=== PATIENT | female | born 1940 | race Caucasian/White ===

== ENCOUNTER 2022-07-02 21:29 | Inpatient (IN) | payer MEDICARE, BC, SELFPAY ==
[2022-07-02] VITALS (11 sets, daily range): BP systolic 127–152; BP diastolic 76–122; PULSE 37–98; RESP 18; TEMP 37.2; O2SAT 89–94
--- NOTE | 2022-07-02 23:10 | ED.SOB ---
HPI - SOB/Dyspnea General Time Seen by Provider: 23:10 Date Seen: 07/02/22 Chief Complaint: Shortness of Breath/Dyspnea Stated Complaint: hard time breathing, cough, nauseated Time Seen by Provider: 07/02/22 23:07 Source: patient and family Mode of arrival: ambulatory Limitations: no limitations History of Present Illness HPI Narrative: Patient is a very pleasant 82-year-old female with history of hyperlipidemia who presents to the emergency room with shortness of breath, hypoxia, body aches and fever. Patient notes that she has had 2-3 days of body aches accompanied by nausea dry heaves and diarrhea. She states she tried Pepto-Bismol but was binding her up and she has since quit that. She notes that she has not had a runny nose or sore throat but has had a headache and a fever although the fever has been lobe 100. She notes that she has not needed oxygen in the past. She notes that she has had 6 of small amount of chest pain with this illness as well. She does not know of any ill contacts. Related Data Home Medications Medication Instructions Recorded Confirmed aspirin 81 mg chewable tablet 81 mg PO DAILY 07/02/22 07/02/22 atorvastatin 40 mg tablet 40 mg PO DAILY 07/02/22 07/02/22 cetirizine 10 mg tablet 10 mg PO DAILY PRN 07/02/22 07/02/22 citalopram 40 mg tablet 20 mg PO DAILY 07/02/22 07/02/22 fluticasone propionate 50 1 spray intranasal DAILY PRN 07/02/22 07/02/22 mcg/actuation nasal spray,suspension furosemide 20 mg tablet 20 mg PO DAILY 07/02/22 07/02/22 hydrochlorothiazide 25 mg tablet 25 mg PO DAILY 07/02/22 07/02/22 ipratropium bromide 0.02 % 2.5 ml inhalation TID-QID PRN 07/02/22 07/02/22 solution for inhalation lisinopril 40 mg tablet 40 mg PO DAILY 07/02/22 07/02/22 metformin 500 mg tablet 500 mg PO DAILY 07/02/22 07/02/22 metoprolol tartrate 25 mg tablet 50 mg PO DAILY 07/02/22 07/02/22 omeprazole 20 mg capsule,delayed 20 mg PO DAILY 05/01/23 05/01/23 release prasugrel 10 mg tablet 10 mg PO DAILY 07/02/22 07/02/22 Allergies Allergy/AdvReac Type Severity Reaction Status Date / Time No Known Drug Allergies Allergy Verified 07/02/22 22:45 Review of Systems Status of ROS: Reports: 10 or more systems reviewed and unremarkable except as noted in History and below Const: Reports: fever, chills and fatigue Eyes: Denies: change in vision ENMT: Denies: throat pain, neck pain, throat swelling, difficulty swallowing or hoarseness Cardio: Reports: chest pain and shortness of breath with exertion; Denies: palpitations, edema, swelling of feet/ankles or lightheadedness Resp: Reports: shortness of breath and cough GI: Reports: nausea, vomiting and diarrhea; Denies: difficulty swallowing : Denies: painful urination Musculo: Denies: back pain or neck pain Neuro: Reports: headache Endo: Reports: fatigue Allergy/Immuno: Denies: throat swelling PFSH PFSH Social History Smoking Status: Former smoker Do you use any of these nicotine containing products: None How often do you have a drink containing alcohol: never AUDIT-C Alcohol total score: 0 Non-prescribed substance use: denies use Exam Narrative: Exam Narrative: Yaneth is a very pleasant woman in no acute distress. She is clearly fatigued however. Eyes are clear. Oral cavity with moist mucous membranes. Neck is supple without lymphadenopathy. Heart with in a regular the irregular rhythm but normal rate lungs are with few crackles in the bases right greater than left. Abdomen is soft nontender but patient does feel bloated. Rather diffuse discomfort that I induced with palpation. Lower extremities without edema. Const: Vital Signs, click to edit/add: Vital Signs - 24 hr 07/02/22 22:39 07/02/22 23:00 07/02/22 23:00 Temperature 98.9 F Pulse Rate Pulse Rate [Pulse Oximeter] 91 Respiratory Rate 18 Blood Pressure Blood Pressure [Ri ght Upper Arm] 152/76 H Pulse Oximetry 91 89 91 Oxygen Delivery Me thod Room Air Room Air Nasal Cannula Oxygen Flow Rate 1 07/02/22 22:51 07/02/22 22:57 07/02/22 23:23 Temperature Pulse Rate 81 79 Pulse Rate [Pulse Oximeter] Respiratory Rate Blood Pressure 144/77 H Blood Pressure [Ri ght Upper Arm] Pulse Oximetry 92 90 90 Oxygen Delivery Me thod Oxygen Flow Rate 07/02/22 23:23 07/02/22 22:58 07/02/22 23:00 Temperature Pulse Rate 98 93 Pulse Rate [Pulse Oximeter] Respiratory Rate Blood Pressure Blood Pressure [Ri ght Upper Arm] Pulse Oximetry 91 89 90 Oxygen Delivery Me thod Nasal Cannula Oxygen Flow Rate 1 07/02/22 23:02 07/02/22 23:20 07/02/22 23:22 Temperature Pulse Rate 85 82 76 Pulse Rate [Pulse Oximeter] Respiratory Rate Blood Pressure 134/122 H 127/109 H Blood Pressure [Ri ght Upper Arm] Pulse Oximetry 93 92 94 Oxygen Delivery Me thod Oxygen Flow Rate 07/02/22 23:32 07/02/22 23:40 07/03/22 00:00 Temperature Pulse Rate 37 L 88 82 Pulse Rate [Pulse Oximeter] Respiratory Rate Blood Pressure 144/107 H Blood Pressure [Ri ght Upper Arm] Pulse Oximetry 93 93 92 Oxygen Delivery Me thod Oxygen Flow Rate 07/03/22 00:03 Temperature Pulse Rate 86 Pulse Rate [Pulse Oximeter] Respiratory Rate Blood Pressure 134/104 H Blood Pressure [Ri ght Upper Arm] Pulse Oximetry 92 Oxygen Delivery Me thod Oxygen Flow Rate Documenting provider has reviewed patient's vital signs: yes Course Course Hospital Course: Patient is suspicious for COVID but will also need to check for acute coronary event, PE, viral swabs, congestive heart failure. Will place IV and give 500 mL normal saline, Zofran 4 mg and do chest x-ray CBC, comprehensive panel, troponin, CRP Codman deemed dimer, lactate and urinalysis. Reevaluation(s) Reevaluation #1: Patient noted to have hypokalemia with potassium 2.9, low magnesium with the level of 1.4. Also chest x-ray shows increased markings and D-dimer is elevated. Patient will receive 2 g IV magnesium, potassium 50 mEq p.o. and undergo CT of the chest. Vital Signs Vital signs: Initial Vital Signs Temperature 98.9 F 07/02/22 22:39 Temperature Source Oral 07/02/22 22:39 Pulse Rate 91 07/02/22 22:39 Pulse Rhythm Regular 07/02/22 22:39 Respiratory Rate 18 07/02/22 22:39 Blood Pressure 152/76 H 07/02/22 22:39 Blood Pressure Mean 101 07/02/22 22:39 Pulse Oximetry 91 07/02/22 22:39 Oxygen Delivery Method Room Air 07/02/22 22:39 Vital Signs Temperature 98.9 F 07/02/22 22:39 Pulse Rate 91 07/02/22 22:39 Respiratory Rate 18 07/02/22 22:39 Blood Pressure 152/76 H 07/02/22 22:39 Pulse Oximetry 91 07/02/22 22:39 Oxygen Delivery Method Room Air 07/02/22 22:39 Temperature 98.9 F 07/02/22 22:39 Pulse Rate 86 07/03/22 00:03 Respiratory Rate 18 07/02/22 22:39 Blood Pressure 134/104 H 07/03/22 00:03 Pulse Oximetry 92 07/03/22 00:03 Oxygen Delivery Method Nasal Cannula 07/02/22 23:23 Oxygen Flow Rate 1 07/02/22 23:23 MDM - SOB/Dyspnea MDM Narrative Medical decision making narrative: 1. COVID with hypoxia-remdesivir 200 mg IV will be given in the ED. patient will be continued on oxygen at this time. She is feeling much better. Fluids 500 mL at this time. Dexamethasone 10 mg IV. 2. Elevated troponin-0.06 with repeat pending culture 3. Hypomagnesemia-magnesium is 1.4. For 2 g IV magnesium ordered. 4. Hypokalemia-potassium is 2.9. Fifty mEq p.o. is ordered. 5. Elevated D-dimer-CT of the chest 6. Disposition- admit to the floor. Discussed code status with patient and she is full code. Discussed patient with of L hospitalist who accepts this patient to the floor. Our EMR will be going down shortly and therefore will hand write orders for the floor as both myself and the [facility] hospitalist will be unable to enter orders. CT has been returned at this time. There is a 1.7 cm nodule suspicious for a lung cancer. Will inform patient of this and need for biopsy versus future studies. Trace pro Sachi effusions. No evidence of PE. Lab Data Attestation: I reviewed the patient's lab results. Labs: Lab Results 07/02/22 07/02/22 07/02/22 Range/Units 23:23 23:30 23:56 WBC 8.94 (4.50-11.00) K/uL RBC 2.82 L (4.00-5.20) m/uL Hgb 9.1 L (12.0-16.0) gm/dL Hct 26.4 L (33.0-51.0) % MCV 94 (80-100) fL MCH 32 (26-34) pg MCHC 35 (32-36) gm/dL RDW Coeff of Radha 13.5 (11.5-15.5) % Plt Count 170 (140-440) K/uL Neut % (Auto) 81.7 H (42.0-72.0) % Lymph % (Auto) 10.3 L (20-44) % Brooks % (Auto) 7.2 (0.0-11.0) % Eos % (Auto) 0.4 (0.0-7.0) % Baso % (Auto) 0.1 (0.0-3.0) % Neut # (Auto) 7.30 H (1.7-7.0) K/uL Lymph # (Auto) 0.90 (0.90-2.90) K/uL Brooks # (Auto) 0.60 (0.00-0.90) K/UL Eos # (Auto) 0.04 (0.00-0.50) K/uL Baso # (Auto) 0.01 (0.00-0.30) K/uL D-Dimer Quant (PE/DVT) 0.64 H (0.00-0.50) ug/ml Sodium 135 (135-149) mmol/L Potassium 2.9 L* (3.6-5.1) mmol/L Chloride 97 (96-114) mmol/L Carbon Dioxide 35 H (20-32) mmol/L BUN 19 (7-30) mg/dL Creatinine 1.0 (0.5-1.5) mg/dL Estimated GFR 56 ml/min Glucose 141 H (60-115) mg/dL Lactate 1.6 (0.5-1.9) mmol/L Calcium 8.1 L (8.4-10.6) mg/dL Magnesium 1.4 L (1.5-2.6) mg/dL Total Bilirubin 1.0 (0.1-1.5) mg/dL AST 25 (12-35) U/L ALT 22 (4-35) U/L Alkaline Phosphatase 78 (40-150) U/L Troponin I 0.06 H* (0.01-0.04) ng/mL C-Reactive Protein 8.7 H (0.5-1.0) mg/dL Total Protein 6.0 (6.0-8.3) g/dL Albumin 3.2 L (3.3-5.0) g/dL SARS-CoV-2 (PCR) POSITIVE SARS-CoV-2 A (Negative) Influenza Type A (PCR) Negative PCR FLU A (Negative) Influenza Type B (PCR) Negative PCR FLU B (Negative) RSV (PCR) Negative PCR RSV (Negative) POC Troponin I 0.03 (0.01-0.04) ng/ml Imaging Data Chest x-ray: Attestation: I have reviewed the pertinent imaging results. Radiologist's impression: Cardiovascular and mediastinum:? Cardiomediastinal silhouette is mildly enlarged.. Left chest wall AICD with leads extending to the right atrium and ventricle. Calcific atherosclerosis of the aorta. Lungs and pleural spaces:? Bibasilar opacities may reflect aspiration, infection, mild edema or atelectasis. No sign of pleural effusion.? No pneumothorax.? Bones and soft tissues:? Unremarkable for age CT scan - chest: Attestation: I have reviewed the pertinent imaging results. Radiologist's impression: Cardiovascular: The pulmonary arteries are unremarkable in enhancement with no evidence of acute pulmonary embolism. There is a left cardiac pacer present with leads in the right atrium, coronary sinus, and right ventricle. [id number] biventricular cardiomegaly is noted. No sign of aneurysm in the thoracic aorta. Moderate atherosclerotic calcifications are noted in the coronary arteries. Mediastinum: Right hilar lymph nodes are present measuring up to 1.3 cm. Lung: Mild septal thickening, ground-glass opacity and peribronchial cuffing are present bilaterally which may be due to mild interstitial edema. There is a 1.7 cm nodule present in the superior segment of the right lower lobe. Pleura and pericardium: Small right and trace left pleural effusion is noted. No significant pericardial effusion is present. Chest wall and axilla: No mass or adenopathy seen. Bone: Unremarkable for age. Upper abdomen: Cysts are partially visualized in the upper pole of the right kidney measuring up to 2 cm. IMPRESSIONS: 1. Mild septal thickening, ground-glass opacity and peribronchial cuffing are present bilaterally which may be due to mild interstitial edema. 2. Moderate atherosclerotic calcifications are noted in the coronary arteries. 3. Small right and trace left pleural effusion is noted. 4. There is a 1.7 cm nodule present in the superior segment of the right lower lobe. Further evaluation with follow-up biopsy or PET scan is recommended to exclude a primary pulmonary neoplasm in accordance with the 2017 Revised Fleischner Society Recommendations. Right hilar adenopathy should be viewed with suspicion depending on the disposition of this nodule. ECG Data Attestation: I personally reviewed and interpreted this ECG as follows: Interpretation: EKG by my read shows pacer spikes at a rhythm of 89. There frequent premature complexes as well. Discharge Plan Discharge Clinical Impression: COVID, Elevated troponin, Hypoxia, Acute hypokalemia, Hypomagnesemia Patient Disposition: Admitted As Inpatient Condition: Improved
--- NOTE | 2022-07-02 23:23 | CRLHL7_ITS ---
For Patients: As a result of the Century Cures Act, medical imaging exams and procedure reports are released immediately into your electronic medical record. You may view this report before your referring provider. If you have questions, please contact your health care provider. INDICATION: Chest pain. TECHNIQUE: Chest 1 views. COMPARISON: None. FINDINGS/IMPRESSION: Cardiovascular and mediastinum: Cardiomediastinal silhouette is mildly enlarged.. Left chest wall AICD with leads extending to the right atrium and ventricle. Calcific atherosclerosis of the aorta. Lungs and pleural spaces: Bibasilar opacities may reflect aspiration, infection, mild edema or atelectasis. No sign of pleural effusion. No pneumothorax. Bones and soft tissues: Unremarkable for age. Dictated by Herberth Goldberg MD @ 07/02/2022 11:54:04 PM (Electronically Signed)
[2022-07-02 23:35] LABS: Lactate* 1.6 mmol/L (0.5-1.9)
[2022-07-02 23:37] LABS: Basophils Absolute Auto 0.01 K/uL (0.00-0.30); Basophils Percent Auto 0.1 % (0.0-3.0); Eosinophils Absolute Auto 0.04 K/uL (0.00-0.50); Eosinophils Percent Auto 0.4 % (0.0-7.0); Hematocrit 26.4 % (33.0-51.0); Hemoglobin* 9.1 gm/dL (12.0-16.0); Immature Granulocytes Abs Auto 0.03 K/uL (0.00-0.30); Immature Granulocytes Pct Auto 0.3 %; Lymphocytes Percent Auto 10.3 % (20-44); Mean Corpuscular HGB Conc 35 gm/dL (32-36); Mean Corpuscular Hemoglobin 32 pg (26-34); Mean Corpuscular Volume 94 fL (80-100); Monocytes Percent Auto 7.2 % (0.0-11.0); Neutrophils Percent Auto 81.7 % (42.0-72.0); Platelet Count* 170 K/uL (140-440); RDW Coefficient of Variation % 13.5 % (11.5-15.5); Red Blood Count 2.82 m/uL (4.00-5.20); White Blood Count* 8.94 K/uL (4.50-11.00)
[2022-07-02 23:38] LABS: Slide Review Reflex No
[2022-07-02] MEDS: 0.9 % SODIUM CHLORIDE 500 ML 500 ML IV (23:49)
[2022-07-02] MEDS: ONDANSETRON 2 MG/ML inj 4 MG IVP (23:49)
[2022-07-02 23:52] LABS: Troponin, Point-of-Care* 0.03 ng/ml (0.01-0.04)
[2022-07-02 23:54] LABS: Albumin* 3.2 g/dL (3.3-5.0); Chloride* 97 mmol/L (96-114); Sodium* 135 mmol/L (135-149)
[2022-07-02 23:57] LABS: Aspartate Amino Transferase* 25 U/L (12-35); Carbon Dioxide* 35 mmol/L (20-32); Estimated Glomerular Filt Rate 56 ml/min; Magnesium* 1.4 mg/dL (1.5-2.6)
[2022-07-02 23:58] LABS: Alanine Aminotransferase* 22 U/L (4-35); Alkaline Phosphatase* 78 U/L (40-150); Blood Urea Nitrogen* 19 mg/dL (7-30); Calcium* 8.1 mg/dL (8.4-10.6); Glucose* 141 mg/dL (60-115)
[2022-07-02 23:59] LABS: D Dimer Quantitative* 0.64 ug/ml (0.00-0.50)
[2022-07-03] VITALS (15 sets, daily range): BP systolic 99–144; BP diastolic 45–104; PULSE 60–86; RESP 18–20; TEMP 36–37.9; O2SAT 92–96; BMI 29.3
[2022-07-03] LABS: C Reactive Protein* 8.7 mg/dL (0.5-1.0)
[2022-07-03 00:01] LABS: Potassium* 2.9 mmol/L (3.6-5.1)
[2022-07-03 00:11] LABS: Troponin I* 0.06 ng/mL (0.01-0.04)
--- NOTE | 2022-07-03 00:16 | CRLHL7_ITS ---
For Patients: As a result of the Century Cures Act, medical imaging exams and procedure reports are released immediately into your electronic medical record. You may view this report before your referring provider. If you have questions, please contact your health care provider. INDICATION: Elevated D-dimer and hypoxia TECHNIQUE: CT chest with i.v. contrast using pulmonary angiographic technique. Coronal and sagittal reformats were obtained. CONTRAST: 95 mL Isovue 370 COMPARISON: None FINDINGS: Cardiovascular: The pulmonary arteries are unremarkable in enhancement with no evidence of acute pulmonary embolism. There is a left cardiac pacer present with leads in the right atrium, coronary sinus, and right ventricle. [id number]-ju-dtdrtads biventricular cardiomegaly is noted. No sign of aneurysm in the thoracic aorta. Moderate atherosclerotic calcifications are noted in the coronary arteries. Mediastinum: Right hilar lymph nodes are present measuring up to 1.3 cm. Lung: Mild septal thickening, ground-glass opacity and peribronchial cuffing are present bilaterally which may be due to mild interstitial edema. There is a 1.7 cm nodule present in the superior segment of the right lower lobe. Pleura and pericardium: Small right and trace left pleural effusion is noted. No significant pericardial effusion is present. Chest wall and axilla: No mass or adenopathy seen. Bone: Unremarkable for age. Upper abdomen: Cysts are partially visualized in the upper pole of the right kidney measuring up to 2 cm. IMPRESSIONS: 1. Mild septal thickening, ground-glass opacity and peribronchial cuffing are present bilaterally which may be due to mild interstitial edema. 2. Moderate atherosclerotic calcifications are noted in the coronary arteries. 3. Small right and trace left pleural effusion is noted. 4. There is a 1.7 cm nodule present in the superior segment of the right lower lobe. Further evaluation with follow-up biopsy or PET scan is recommended to exclude a primary pulmonary neoplasm in accordance with the 2017 Revised Fleischner Society Recommendations. Right hilar adenopathy should be viewed with suspicion depending on the disposition of this nodule. The findings were discussed with Dr. Garcia at 1:17 AM. Dictated by Sj Hdz MD @ 07/03/2022 1:14:30 AM Please note that all CT scans at this facility use dose modulation, iterative reconstruction, and/or weight-based dosing when appropriate to reduce radiation dose to as low as reasonably achievable. Dictated by: Sj Hdz MD @ 07/03/2022 01:17:56 (Electronically Signed)
[2022-07-03] MEDS: MAGNESIUM IV 2 GM/50 ML PIGGYBACK IVPB (00:29)
[2022-07-03] MEDS: POTASSIUM BICARB 25 MEQ EFFERVESCENT TAB 50 MEQ PO (00:29)
[2022-07-03 00:36] LABS: PCR FLU A Negative PCR FLU A (Negative); PCR FLU B Negative PCR FLU B (Negative); PCR RSV Negative PCR RSV (Negative); SARS PCR* POSITIVE SARS-CoV-2 (Negative)
[2022-07-03] MEDS: dexAMETHasone 4 MG/ML VIAL 10 MG IV (01:11)
[2022-07-03 01:25] LABS: Troponin, Point-of-Care* 0.04 ng/ml (0.01-0.04)
[2022-07-03] MEDS: ACETAMINOPHEN 500 MG TABLET 1000 MG PO (03:00)
--- NOTE | 2022-07-03 05:38 | PC.NURSE ---
down time occurred, patient admitted to [facility], report given to [facility] SHAUNA York
--- NOTE | 2022-07-03 06:17 | PC.NURSE ---
ADMISSION NOTE: Pt pleasant and cooperative, A&O. Pt admitted from ER with COVID, initially on 1.5L O2 PNC with oxygen saturation in the mid 90's, when pt fell asleep oxygen saturation 89%, increased oxygen to 2LPM with oxygen saturation at 94%. Temp 100.2, Tylenol administered. Tele paced. Pt reported her SOB was much improved since arriving in the ER and now only has mild SOB with exertion. Pt denied pain, N/V, and CP. Up SBA, steady on her feet. Pt went to sleep after admission, has not been up to use the BR yet, still need to obtain a urine sample.
[2022-07-03 07:19] LABS: Basophils Absolute Auto 0.01 K/uL (0.00-0.30); Basophils Percent Auto 0.2 % (0.0-3.0); Hematocrit 25.7 % (33.0-51.0); Hemoglobin* 8.7 gm/dL (12.0-16.0); Immature Granulocytes Abs Auto 0.02 K/uL (0.00-0.30); Immature Granulocytes Pct Auto 0.3 %; Lymphocytes Percent Auto 10.6 % (20-44); Mean Corpuscular HGB Conc 34 gm/dL (32-36); Mean Corpuscular Hemoglobin 32 pg (26-34); Mean Corpuscular Volume 95 fL (80-100); Monocytes Percent Auto 1.7 % (0.0-11.0); Neutrophils Percent Auto 87.2 % (42.0-72.0); Platelet Count* 171 K/uL (140-440); RDW Coefficient of Variation % 13.7 % (11.5-15.5); White Blood Count* 6.53 K/uL (4.50-11.00)
[2022-07-03 07:21] LABS: Slide Review Reflex No
[2022-07-03 07:27] LABS: Albumin* 3.2 g/dL (3.3-5.0); Chloride* 97 mmol/L (96-114); Potassium* 3.5 mmol/L (3.6-5.1); Sodium* 136 mmol/L (135-149)
[2022-07-03 07:29] LABS: Creatinine* 1.1 mg/dL (0.5-1.5); Est. Creatinine Clearance* 30.65; Estimated Glomerular Filt Rate 50 ml/min
[2022-07-03 07:30] LABS: Alanine Aminotransferase* 24 U/L (4-35); Alkaline Phosphatase* 76 U/L (40-150); Aspartate Amino Transferase* 27 U/L (12-35); Bilirubin Total* 0.5 mg/dL (0.1-1.5); Blood Urea Nitrogen* 21 mg/dL (7-30); Calcium* 7.7 mg/dL (8.4-10.6); Carbon Dioxide* 35 mmol/L (20-32); Glucose* 186 mg/dL (60-115)
--- NOTE | 2022-07-03 10:29 | PM.IMHP1 ---
Hospitalist- H&P: HPI History of Present Illness Date Seen: 07/03/22 Chief complaint: hard time breathing, cough, nauseated Narrative: Yaneth Rodriguez is a 82 year old female who presented to the emergency room on the evening of 07/02 for concerns of shortness of breath, abdominal discomfort and bloating, intermittent cough, body aches, and fever. She did not have any chest pain, but noted gas pain throughout her epigastrium, accompanied by intermittent dry heaves and diarrhea. She was unable to find any medications to help her symptoms, and presented to the emergency room secondary to this illness. ER course and findings: - + COVID - acute hypoxic respiratory failure - hypokalemia, hypocalcemia, hypomagnesemia - 1.7cm nodule noted in superior segment of RLL on chest CT - Remdesivir initiated, given one dose of Decadron as well Patient admitted by the hospitalist overnight, no acute events overnight. Yaneth's medical history was reviewed with her this morning (splits time between [place] and [place], [place] - PCP in [place] is Dr. George Javier; PCP in [place] is SIRI HurtadoP at [facility]) and updated below. She lives with her son and [id number] (Mauro and Priscillaeric Evans, would be medical decision makers if needed). Review of Systems Status of ROS: Reports: 10 or more systems reviewed and unremarkable except as noted in History and below Narrative: No chest pain or palpitations, no skin concerns PFSH [facility] Medical History (Updated 07/03/22 @ 13:41 by Leona Membreno MD) Hyperlipidemia ?E78.5 - Hyperlipidemia, unspecified (ICD-10) Non-insulin dependent diabetes mellitus CHF (congestive heart failure) ?I50.9 - Heart failure, unspecified (ICD-10) Coronary artery disease ?I25.10 - Atherosclerotic heart disease of [place] coronary artery without angina pectoris (ICD-10) Normocytic anemia ?D64.9 - Anemia, unspecified (ICD-10) Essential hypertension ?I10 - Essential (primary) hypertension (ICD-10) Presence of combination internal cardiac defibrillator (ICD) and pacemaker ?Z95.810 - Presence of automatic (implantable) cardiac defibrillator (ICD-10) Surgical History (Updated 07/03/22 @ 10:31 by Leona Membreno MD) H/O heart artery stent ?Z95.5 - Presence of coronary angioplasty implant and graft (ICD-10) S/P coil embolization of cerebral aneurysm ?Z98.890 - Other specified postprocedural states (ICD-10) Social History (Updated 07/03/22 @ 12:33 by Leona Membreno MD) Narrative: Yaneth is retired, has 5 adult children. Not currently (, then ). Splits time between [place] (lives with Mauro/Priscilla) and [place]. Quit smoking remotely, rare ETOH. Son Mauro and MAYCOL Wells would be medical decision makers if needed. Full Code Smoking Status: Former smoker Do you use any of these nicotine containing products: None Nicotine containing products detail: Quit smoking 1986 Second hand tobacco smoke exposure: No How often do you have a drink containing alcohol: never AUDIT-C Alcohol total score: 0 Non-prescribed substance use: denies use Caffeine: Yes (COFFEE) service: No Meds Home Medications and Allergies Home Medications Medication Instructions Recorded Confirmed Type aspirin 81 mg chewable tablet 81 mg PO DAILY 07/02/22 07/02/22 History atorvastatin 40 mg tablet 40 mg PO DAILY 07/02/22 07/02/22 History cetirizine 10 mg tablet 10 mg PO DAILY PRN 07/02/22 07/02/22 History citalopram 40 mg tablet 20 mg PO DAILY 07/02/22 07/02/22 History fluticasone propionate 50 1 spray intranasal DAILY PRN 07/02/22 07/02/22 History mcg/actuation nasal spray,suspension furosemide 20 mg tablet 20 mg PO DAILY 07/02/22 07/02/22 History hydrochlorothiazide 25 mg tablet 25 mg PO DAILY 07/02/22 07/02/22 History ipratropium bromide 0.02 % 2.5 ml inhalation TID-QID PRN 07/02/22 07/02/22 History solution for inhalation lisinopril 40 mg tablet 40 mg PO DAILY 07/02/22 07/02/22 History metformin 500 mg tablet 500 mg PO DAILY 07/02/22 07/02/22 History metoprolol tartrate 25 mg tablet 50 mg PO DAILY 07/02/22 07/02/22 History omeprazole 20 mg capsule,delayed 20 mg PO DAILY 07/02/22 07/02/22 History release prasugrel 10 mg tablet 10 mg PO DAILY 07/02/22 07/02/22 History Allergies Allergy/AdvReac Type Severity Reaction Status Date / Time No Known Drug Allergies Allergy Verified 07/02/22 22:45 Exam Narrative: Exam Narrative: GEN: Alert and oriented, sitting comfortably in bed and answering questions appropriately HEENT: EOMIs bilaterally, no scleral icterus CV: RRR, No concerning murmurs, rubs, or gallops R: LCTA bilaterally without concerning wheezing Ext: wwp, no concerning edema Skin: No concerning skin lesions or rashes on exposed skin Neuro: No focal deficits Psych: Appropriate Const: Vital Signs, click to edit/add: Vital Signs - 24 hr 07/02/22 22:39 07/02/22 22:51 07/02/22 22:57 Temperature 98.9 F Pulse Rate 81 79 Pulse Rate [Left P ulse Oximeter] Pulse Rate [Pulse Oximeter] 91 Respiratory Rate 18 Blood Pressure 144/77 H Blood Pressure [Le ft Arm] Blood Pressure [Ri ght Upper Arm] 152/76 H Pulse Oximetry 91 92 90 Oxygen Delivery Me thod Room Air Oxygen Flow Rate 07/02/22 22:58 07/02/22 23:00 07/02/22 23:00 Temperature Pulse Rate 98 Pulse Rate [Left P ulse Oximeter] Pulse Rate [Pulse Oximeter] Respiratory Rate Blood Pressure Blood Pressure [Le ft Arm] Blood Pressure [Ri ght Upper Arm] Pulse Oximetry 89 89 91 Oxygen Delivery Me thod Room Air Nasal Cannula Oxygen Flow Rate 1 07/02/22 23:00 07/02/22 23:02 07/02/22 23:20 Temperature Pulse Rate 93 85 82 Pulse Rate [Left P ulse Oximeter] Pulse Rate [Pulse Oximeter] Respiratory Rate Blood Pressure 134/122 H Blood Pressure [Le ft Arm] Blood Pressure [Ri ght Upper Arm] Pulse Oximetry 90 93 92 Oxygen Delivery Me thod Oxygen Flow Rate 07/02/22 23:22 07/02/22 23:23 07/02/22 23:23 Temperature Pulse Rate 76 Pulse Rate [Left P ulse Oximeter] Pulse Rate [Pulse Oximeter] Respiratory Rate Blood Pressure 127/109 H Blood Pressure [Le ft Arm] Blood Pressure [Ri ght Upper Arm] Pulse Oximetry 94 90 91 Oxygen Delivery Me thod Nasal Cannula Oxygen Flow Rate 1 07/02/22 23:32 07/02/22 23:40 07/03/22 00:00 Temperature Pulse Rate 37 L 88 82 Pulse Rate [Left P ulse Oximeter] Pulse Rate [Pulse Oximeter] Respiratory Rate Blood Pressure 144/107 H Blood Pressure [Le ft Arm] Blood Pressure [Ri ght Upper Arm] Pulse Oximetry 93 93 92 Oxygen Delivery Me thod Oxygen Flow Rate 07/03/22 00:03 07/03/22 00:33 07/03/22 01:20 Temperature Pulse Rate 86 78 72 Pulse Rate [Left P ulse Oximeter] Pulse Rate [Pulse Oximeter] Respiratory Rate Blood Pressure 134/104 H 144/90 H Blood Pressure [Le ft Arm] Blood Pressure [Ri ght Upper Arm] Pulse Oximetry 92 92 94 Oxygen Delivery Me thod Oxygen Flow Rate 07/03/22 02:00 07/03/22 02:00 07/03/22 02:00 Temperature 100.2 F H Pulse Rate 62 Pulse Rate [Left P ulse Oximeter] 64 Pulse Rate [Pulse Oximeter] Respiratory Rate 20 20 Blood Pressure Blood Pressure [Le ft Arm] 121/47 L Blood Pressure [Ri ght Upper Arm] Pulse Oximetry 96 96 Oxygen Delivery Me thod Nasal Cannula Nasal Cannula Oxygen Flow Rate 1.5 1.5 07/03/22 03:00 07/03/22 07:00 07/03/22 08:00 Temperature 100.2 F H Pulse Rate 62 Pulse Rate [Left P ulse Oximeter] Pulse Rate [Pulse Oximeter] Respiratory Rate Blood Pressure Blood Pressure [Le ft Arm] Blood Pressure [Ri ght Upper Arm] Pulse Oximetry 92 Oxygen Delivery Me thod Oxygen Flow Rate 07/03/22 08:00 07/03/22 08:00 07/03/22 08:00 Temperature 98 F Pulse Rate Pulse Rate [Left P ulse Oximeter] 60 60 Pulse Rate [Pulse Oximeter] Respiratory Rate 20 20 Blood Pressure Blood Pressure [Le ft Arm] 115/58 L Blood Pressure [Ri ght Upper Arm] Pulse Oximetry 92 92 Oxygen Delivery Me thod Nasal Cannula Nasal Cannula Oxygen Flow Rate 2 2 Hospitalist - H&P: Result Labs Labs: Short CBC 07/02/22 07/03/22 Range/Units 23:30 07:00 WBC 8.94 6.53 (4.50-11.00) K/uL Hgb 9.1 L 8.7 L (12.0-16.0) gm/dL Hct 26.4 L 25.7 L (33.0-51.0) % Plt Count 170 171 (140-440) K/uL BMP 07/02/22 07/03/22 23:30 07:00 Sodium 135 136 Potassium 2.9 L* 3.5 L Chloride 97 97 Carbon Dioxide 35 H 35 H BUN 19 21 Creatinine 1.0 1.1 Glucose 141 H 186 H Calcium 8.1 L 7.7 L Cardiac Enzymes 07/02/22 Range/Units 23:30 Troponin I 0.06 H* (0.01-0.04) ng/mL Liver Function 07/02/22 07/03/22 Range/Units 23:30 07:00 Total Bilirubin 1.0 0.5 (0.1-1.5) mg/dL AST 25 27 (12-35) U/L ALT 22 24 (4-35) U/L Alkaline Phosphatase 78 76 (40-150) U/L Albumin 3.2 L 3.2 L (3.3-5.0) g/dL CT Chest 07/03: IMPRESSIONS: 1. Mild septal thickening, ground-glass opacity and peribronchial cuffing are present bilaterally which may be due to mild interstitial edema. 2. Moderate atherosclerotic calcifications are noted in the coronary arteries. 3. Small right and trace left pleural effusion is noted. 4. There is a 1.7 cm nodule present in the superior segment of the right lower lobe. Further evaluation with follow-up biopsy or PET scan is recommended to exclude a primary pulmonary neoplasm in accordance with the 2017 Revised Fleischner Society Recommendations. Right hilar adenopathy should be viewed with suspicion depending on the disposition of this nodule. Assessment and Plan Assessment and plan (1) Hypoxia: Problem comment: - acute hypoxia secondary to COVID infection - treating with remdesivir and Decadron - RT following Status: Acute (2) Elevated troponin: Problem comment: - likely cardiac strain due to acute illness - obtain TTE to assess given history - follow to peak Status: Acute (3) COVID: Problem comment: - continue specific treatments as noted above - PT and OT following to assist with discharge recommendations Status: Acute (4) Acute hypokalemia: Problem comment: - replace and follow Status: Acute (5) Hypomagnesemia: Problem comment: - replace and follow Status: Acute (6) Non-insulin dependent diabetes mellitus: Problem comment: - unknown last A1C, accuchecks and SSI Status: Acute (7) Normocytic anemia: Problem comment: - unknown baseline, no evidence of acute bleeding, follow Hgb Status: Acute (8) Essential hypertension: Problem comment: - home medications with holding parameters Status: Acute (9) Pulmonary mass: Problem comment: - 1.7cm mass superior aspect of R lower lobe, incidentally noted on CT scan 07/02 - patient and family aware of finding, will schedule f/u with [facility] as an outpatient Status: Acute Plan - per above - Lovenox for ppx - home with son and DIL when medically stable, possibly as early as tomorrow pending oxygen needs
[2022-07-03] MEDS: POTASSIUM BICARB 25 MEQ EFFERVESCENT TAB PO ×2 (10:46→13:42)
[2022-07-03] MEDS: ENOXAPARIN 40 MG/0.4 ML INJ SUBCUT (10:46)
[2022-07-03] MEDS: CITALOPRAM HYDROBROMIDE 20 MG TABLET PO (12:16)
[2022-07-03] MEDS: ASPIRIN 81 MG TAB.CHEW PO (12:17)
[2022-07-03] MEDS: FUROSEMIDE 20 MG TABLET PO (12:17)
[2022-07-03] MEDS: OMEPRAZOLE 20 MG CAPSULE DR PO (12:17)
[2022-07-03] MEDS: METOPROLOL TARTRATE 25 MG TABLET 50 MG PO (12:18)
[2022-07-03 13:17] LABS: Troponin I* 0.06 ng/mL (0.01-0.04)
[2022-07-03] MEDS: dexAMETHasone 2 MG TABLET 6 MG PO (13:42)
[2022-07-03 13:53] LABS: Appearance Urine Clear (Clear); Bilirubin Urine Negative (Negative); Blood Urine Negative (Negative); Color Urine Yellow (Yellow); Glucose Urine Negative (Negative); Ketones Urine Negative (Negative); Leukocyte Esterase Urine 1+ (Negative); Nitrite Urine Negative (Negative); Protein Urine Trace (Negative); Urobilinogen Urine 0.2 (0.2-1.0); pH Urine 6.5 (5.0-8.5)
[2022-07-03 14:12] LABS: RBC Urine 0-2 (0-2); WBC Urine 0-2 (0-5)
--- NOTE | 2022-07-03 22:36 | PC.NURSE ---
Nursing Care Hours [id number] Pt this shift calm and cooperative, alert and oriented. Ambulated in room with SB assist. Fatigued. Pt states she feels worse at night. 92% on 1.5L, titrate down to 0.5L throughout shift, sats at 94%. Afebrile. Soft pressures at 99/45 and 102/46. C/o dry mouth. Only 150cc U/O despite 1020 intake. Insulin given per sliding scale. Tolerating regular diet. ECHO done today. Started home medication of Prasugrel. Discussed with hospitalist todays dose of Aspirin and enoxaparin, verbal ok to give Prasugrel. Removed R AC IV d/t tenderness, R wrist IV already established.
[2022-07-04] VITALS (9 sets, daily range): BP systolic 114–140; BP diastolic 52–77; PULSE 60–62; RESP 16–20; TEMP 36–37; O2SAT 92–96
[2022-07-04] MEDS: MELATONIN 3 MG TABLET PO ×2 (01:16→22:07)
--- NOTE | 2022-07-04 06:23 | PC.NURSE ---
END OF SHIFT NOTE: PT PLEASANT AND COOPERATIVE WITH CARES. DENIES CP, SOB, N/V. VSS ON 0.5L SUPPLEMENTAL OXYGEN VIA NC TO MAINTAIN SPO2 > 90%; ATTEMPT TO WEEN OFF O2 UNSUCCESSFUL. PT DESATS TO 87% ON RA (WHILE ASLEEP AND SNORING). AFEBRILE. TELE READS AV PACED. BED ALARM ON AND CALL LIGHT WITHIN PT?S REACH.?
[2022-07-04] MEDS: OMEPRAZOLE 20 MG CAPSULE DR PO (06:48)
[2022-07-04 06:57] LABS: Ionized Calcium* 1.08 mmol/L (1.11-1.30)
[2022-07-04 07:02] LABS: Basophils Percent Auto 0.1 % (0.0-3.0); Hematocrit 24.8 % (33.0-51.0); Hemoglobin* 8.3 gm/dL (12.0-16.0); Immature Granulocytes Pct Auto 0.3 %; Lymphocytes Percent Auto 6.8 % (20-44); Mean Corpuscular HGB Conc 34 gm/dL (32-36); Mean Corpuscular Hemoglobin 32 pg (26-34); Mean Corpuscular Volume 95 fL (80-100); Monocytes Percent Auto 3.5 % (0.0-11.0); Neutrophils Percent Auto 89.3 % (42.0-72.0); Platelet Count* 163 K/uL (140-440); RDW Coefficient of Variation % 14.1 % (11.5-15.5); Red Blood Count 2.61 m/uL (4.00-5.20); Reticulocyte Hemoglobin Equivi 27.8 pg (29.0-35.0); Reticulocyte Percent 2.5 % (0.5-2.0); Reticulocytes Absolute 0.07 # (0.03-0.08); White Blood Count* 15.82 K/uL (4.50-11.00)
[2022-07-04 07:03] LABS: Slide Review Reflex No
[2022-07-04 07:30] LABS: Chloride* 96 mmol/L (96-114); Sodium* 135 mmol/L (135-149)
[2022-07-04 07:31] LABS: Potassium* 4.3 mmol/L (3.6-5.1)
[2022-07-04 07:32] LABS: Iron* 22 ug/dL (37-170)
[2022-07-04 07:33] LABS: Alanine Aminotransferase* 22 U/L (4-35); Alkaline Phosphatase* 68 U/L (40-150); Aspartate Amino Transferase* 24 U/L (12-35); Bilirubin Total* 0.2 mg/dL (0.1-1.5); Blood Urea Nitrogen* 52 mg/dL (7-30); Carbon Dioxide* 36 mmol/L (20-32); Creatinine* 1.5 mg/dL (0.5-1.5); Est. Creatinine Clearance* 22.48; Estimated Glomerular Filt Rate 34 ml/min; Total Protein* 5.7 g/dL (6.0-8.3)
[2022-07-04 07:34] LABS: Glucose* 158 mg/dL (60-115); Magnesium* 2.2 mg/dL (1.5-2.6)
[2022-07-04 07:42] LABS: Percent Iron Saturation 7 % (20-50); Total Iron Binding Capacity 306 ug/dL (265-497)
[2022-07-04 07:45] LABS: Troponin I* 0.04 ng/mL (0.01-0.04)
[2022-07-04] MEDS: ASPIRIN 81 MG TAB.CHEW PO (08:59)
[2022-07-04] MEDS: CITALOPRAM HYDROBROMIDE 20 MG TABLET PO (08:59)
[2022-07-04] MEDS: FUROSEMIDE 20 MG TABLET PO (09:00)
[2022-07-04] MEDS: METOPROLOL TARTRATE 25 MG TABLET 50 MG PO (09:00)
--- NOTE | 2022-07-04 14:58 | PM.IMPN1 ---
Progress Note: A&P Assessment and plan (1) Hypoxia: Problem details: - acute hypoxia secondary to COVID infection - treating with remdesivir (3 day course) and Decadron (x2 days) - RT following, tapering supplemental oxygen as tolerated Status: Acute (2) Elevated troponin: Problem details: - likely cardiac strain due to acute illness - peaked at 0.06 - TTE obtained 07/03, results below. Reviewed findings with Cardiology by phone: ddx includes mild COVID myocarditis, demand ischemia. No need to transfer at this time, consider higher level of care if condition changes; otherwise outpatient Cardiology f/u Final Impressions: Limited Echocardiogram performed 1. Normal left ventricular size, normal wall thickness, normal global systolic function, calculated EF of 63 %. 2. Basal anterior septum segment, mid septum segment, basal septum segment are abnormal. Wall motion abnormalities are not in a typical coronary distribution. 3. No significant valve disease detected. 4. Right ventricular cavity size is normal, global systolic RV function is normal. 5. No prior studies for comparison. Status: Acute (3) COVID: Problem details: - PT and OT following to assist with discharge recommendations Status: Acute (4) Acute hypokalemia: Problem details: - replace and follow Status: Acute (5) Hypomagnesemia: Problem details: - replace and follow Status: Acute (6) Non-insulin dependent diabetes mellitus: Problem details: - unknown last A1C, accuchecks and SSI Status: Acute (7) Normocytic anemia: Problem details: - unknown baseline, no evidence of acute bleeding, follow Hgb - elevated reticulocytes, LDH and Haptoglobin pending Status: Acute (8) Essential hypertension: Problem details: - home medications with holding parameters Status: Acute (9) Pulmonary mass: Problem details: - 1.7cm mass superior aspect of R lower lobe, incidentally noted on CT scan 07/02 - patient and family aware of finding, will schedule f/u with [facility] as an outpatient Status: Acute Plan - per above - Prasugrel, ASA, SCDs for ppx - called both [facility] and [facility] for records to assess baseline Hgb and A1C; neither had recent lab values for patient. Will attempt her previous clinic in [place] for baseline lab results Subjective Date Seen: 07/04/22 Interval history: No acute events overnight. Yaneth has been working to wean off of oxygen, still feels weak. Tolerating po intake. No CP, no other concerns for hospitalist team. Exam Narrative: Exam Narrative: GEN: Alert and sitting up comfortably in bedside chair, nontoxic HEENT: EOMIs bilaterally, no scleral icterus CV: RRR, No concerning murmurs R: LCTA bilaterally without concerning wheezing, air movement decreased bilateral bases Ext: wwp, no concerning edema Skin: Eschar on R side of nose is stable (recent BCC removal with Dermatology) Neuro: Nonfocal Psych: Appropriate Const: Vital Signs, click to edit/add: Vital Signs - 24 hr 07/03/22 15:00 07/03/22 15:00 07/03/22 15:00 Temperature Pulse Rate 64 Pulse Rate [Left P ulse Oximeter] 61 Respiratory Rate 18 18 Blood Pressure [Le ft Arm] Pulse Oximetry 92 Oxygen Delivery Me thod Nasal Cannula Oxygen Flow Rate 1.5 07/03/22 16:00 07/03/22 16:00 07/03/22 18:00 Temperature 98.1 F Pulse Rate Pulse Rate [Left P ulse Oximeter] 61 Respiratory Rate 18 18 Blood Pressure [Le ft Arm] 99/45 L Pulse Oximetry 92 92 94 Oxygen Delivery Me thod Nasal Cannula Nasal Cannula Oxygen Flow Rate 1.5 0.5 07/03/22 19:00 07/03/22 19:26 07/03/22 23:00 Temperature 98.2 F Pulse Rate 64 Pulse Rate [Left P ulse Oximeter] 63 75 Respiratory Rate 18 18 Blood Pressure [Le ft Arm] 102/46 L Pulse Oximetry 93 Oxygen Delivery Me thod Nasal Cannula Oxygen Flow Rate 0.5 07/03/22 23:00 07/03/22 23:00 07/04/22 00:00 Temperature 97.7 F Pulse Rate Pulse Rate [Left P ulse Oximeter] 75 Respiratory Rate 18 18 Blood Pressure [Le ft Arm] 116/65 Pulse Oximetry 92 92 92 Oxygen Delivery Me thod Nasal Cannula Nasal Cannula Oxygen Flow Rate 0.5 0.5 07/04/22 01:30 07/04/22 03:30 07/04/22 07:33 Temperature 97.9 F Pulse Rate 60 60 Pulse Rate [Left P ulse Oximeter] 61 Respiratory Rate 16 Blood Pressure [Le ft Arm] 114/52 L Pulse Oximetry 96 Oxygen Delivery Me thod Nasal Cannula Oxygen Flow Rate 0.5 07/04/22 08:00 07/04/22 08:00 07/04/22 08:00 Temperature 98.6 F Pulse Rate Pulse Rate [Left P ulse Oximeter] 60 60 Respiratory Rate 20 16 20 Blood Pressure [Le ft Arm] 130/77 Pulse Oximetry 92 96 Oxygen Delivery Me thod Nasal Cannula Nasal Cannula Oxygen Flow Rate 0.5 0.5 07/04/22 08:00 07/04/22 12:00 Temperature 98.0 F Pulse Rate Pulse Rate [Left P ulse Oximeter] 61 Respiratory Rate 20 Blood Pressure [Le ft Arm] 127/64 Pulse Oximetry 92 93 Oxygen Delivery Me thod Room Air Oxygen Flow Rate Labs Labs: Laboratory Results - last 24 hr 07/04/22 07/04/22 07/04/22 06:40 06:40 06:40 WBC 15.82 H RBC 2.61 L Hgb 8.3 L Hct 24.8 L MCV 95 MCH 32 MCHC 34 RDW Coeff of Radha 14.1 Plt Count 163 Neut % (Auto) 89.3 H Lymph % (Auto) 6.8 L [place] % (Auto) 3.5 Eos % (Auto) 0.0 Baso % (Auto) 0.1 Neut # (Auto) 14.10 H Lymph # (Auto) 1.10 [place] # (Auto) 0.60 Eos # (Auto) 0.00 Baso # (Auto) 0.00 Absolute Retic 0.07 Cancelled Percent Retic 2.5 H Cancelled Immature Retic Fraction 25.0 H Retic Hgb Equivalent Sodium Potassium Chloride Carbon Dioxide BUN Creatinine Estimated Creat Clear Estimated GFR Glucose Calcium Ionized Calcium Nicole Magnesium Iron TIBC % Saturation Ferritin Total Bilirubin AST ALT Alkaline Phosphatase Troponin I Total Protein Albumin 07/04/22 07/04/22 06:40 06:40 WBC RBC Hgb Hct MCV MCH MCHC RDW Coeff of Radha Plt Count Neut % (Auto) Lymph % (Auto) [place] % (Auto) Eos % (Auto) Baso % (Auto) Neut # (Auto) Lymph # (Auto) [place] # (Auto) Eos # (Auto) Baso # (Auto) Absolute Retic Percent Retic Immature Retic Fraction Cancelled Retic Hgb Equivalent 27.8 L Cancelled Sodium 135 Potassium 4.3 Chloride 96 Carbon Dioxide 36 H BUN 52 H Creatinine 1.5 Estimated Creat Clear 22.48 Estimated GFR 34 Glucose 158 H Calcium 8.0 L Ionized Calcium Nicole 1.08 L Magnesium 2.2 Iron 22 L TIBC 306 % Saturation 7 L Ferritin 119.0 Total Bilirubin 0.2 AST 24 ALT 22 Alkaline Phosphatase 68 Troponin I 0.04 Total Protein 5.7 L Albumin 3.0 L
[2022-07-04 16:39] LABS: Lactate Dehydrogenase* 274 U/L (120-246)
[2022-07-04] MEDS: ATORVASTATIN CALCIUM 40 MG TABLET PO (21:46)
[2022-07-05] VITALS (13 sets, daily range): BP systolic 140–178; BP diastolic 58–73; PULSE 60–66; RESP 14–20; TEMP 36.4–37.6; O2SAT 91–96
[2022-07-05] MEDS: 0.9 % SODIUM CHLORIDE 250 ml IV (01:10)
[2022-07-05] MEDS: SODIUM CHLORIDE 0.9 % (FLUSH) 10 ML SYRINGE 5 ML IVF ×3 (01:17→21:39)
[2022-07-05 07:05] LABS: Ionized Calcium* 1.11 mmol/L (1.11-1.30)
--- NOTE | 2022-07-05 07:05 | PC.NURSE ---
Pt has no complaints. Remains on Room Air entire night.
[2022-07-05 07:10] LABS: Hematocrit 25.7 % (33.0-51.0); Hemoglobin* 8.5 gm/dL (12.0-16.0); Immature Granulocytes Pct Auto 0.2 %; Lymphocytes Percent Auto 7.9 % (20-44); Mean Corpuscular HGB Conc 33 gm/dL (32-36); Mean Corpuscular Hemoglobin 32 pg (26-34); Mean Corpuscular Volume 96 fL (80-100); Monocytes Percent Auto 4.3 % (0.0-11.0); Neutrophils Percent Auto 87.6 % (42.0-72.0); Platelet Count* 205 K/uL (140-440); RDW Coefficient of Variation % 14.2 % (11.5-15.5); Red Blood Count 2.67 m/uL (4.00-5.20); White Blood Count* 14.53 K/uL (4.50-11.00)
[2022-07-05 07:15] LABS: Slide Review Reflex No
[2022-07-05 07:29] LABS: Chloride* 99 mmol/L (96-114); Potassium* 4.3 mmol/L (3.6-5.1); Sodium* 136 mmol/L (135-149)
[2022-07-05 07:32] LABS: Blood Urea Nitrogen* 63 mg/dL (7-30); Calcium* 8.1 mg/dL (8.4-10.6); Carbon Dioxide* 34 mmol/L (20-32); Creatinine* 1.4 mg/dL (0.5-1.5); Est. Creatinine Clearance* 24.08; Estimated Glomerular Filt Rate 37 ml/min; Glucose* 125 mg/dL (60-115)
[2022-07-05 07:44] LABS: Troponin I* 0.03 ng/mL (0.01-0.04)
[2022-07-05] MEDS: OMEPRAZOLE 20 MG CAPSULE DR PO (07:58)
[2022-07-05] MEDS: ASPIRIN 81 MG TAB.CHEW PO (08:49)
[2022-07-05] MEDS: CITALOPRAM HYDROBROMIDE 20 MG TABLET PO (08:49)
[2022-07-05] MEDS: FUROSEMIDE 20 MG TABLET PO (08:49)
[2022-07-05] MEDS: Fluticasone Furoate-Vilanterol [Breo Ellipta] 200-25 mcg/dose IH (08:54)
[2022-07-05] MEDS: METOPROLOL TARTRATE 25 MG TABLET 50 MG PO (08:56)
--- NOTE | 2022-07-05 10:53 | CRLHL7_ITS ---
For Patients: As a result of the Century Cures Act, medical imaging exams and procedure reports are released immediately into your electronic medical record. You may view this report before your referring provider. If you have questions, please contact your health care provider. INDICATION: Abdomen pain. TECHNIQUE: CT abdomen and pelvis acquired with 79 mL Isovue 370 contrast. COMPARISON: CT chest dated 07/03/2022. FINDINGS: Lower chest: Small bilateral pleural effusions, right greater than left, not significantly changed. Previously described right lower lobe pulmonary nodule is not included within field of view. Bibasilar dependent compressive atelectasis. Cardiomegaly. Atherosclerotic coronary artery calcifications. Liver: Scattered subcentimeter hypervascular foci, may reflect small arterially enhancing lesions versus transient hepatic attenuation differences. Additional too small to characterize hypodense hepatic lesions, likely benign in the absence of a known malignancy. Gallbladder and bile ducts: Gallbladder is surgically absent. Prominence of the biliary ducts, likely secondary to postcholecystectomy state. Pancreas: Subcentimeter hypodense lesion in the pancreatic head (series 2, image 55). No significant pancreatic duct dilation. Spleen: Unremarkable. Adrenal glands: Unremarkable. Kidneys: Kidneys enhance symmetrically, without hydronephrosis. Multiple small right renal cysts. Scattered nonobstructing subcentimeter left renal calculi. Retroperitoneum: No lymphadenopathy. Bowel and mesentery: Bowel is not obstructed. Scattered colonic diverticulosis, without evidence of acute diverticulitis. Postsurgical changes at the ileocecal valve. Trace amount of mesenteric edema is present in the right pericolic gutter. No pneumoperitoneum. Bladder: Unremarkable for degree of distension. Reproductive organs: Abnormally thickened endometrium for a patient of post menopause age measuring up to 1.0 cm. Pelvic lymph nodes: No lymphadenopathy. Vessels: Extensive atherosclerotic calcifications. Abdominal wall: Small fat filled ventral abdominal hernias are noted. Mild anasarca. Bones: Multilevel degenerative changes of the spine. No suspicious/aggressive focal osseous lesion. IMPRESSION: 1. Bowel is not obstructed. Scattered colonic diverticulosis, without evidence of acute diverticulitis. Trace amount of mesenteric edema is present in the right pericolic gutter, of uncertain etiology. 2. Scattered subcentimeter hypervascular foci in the liver, may reflect small arterially enhancing lesions versus transient hepatic attenuation differences. Recommend follow-up liver MRI, on a nonemergent basis. 3. Subcentimeter hypodense lesion in the pancreatic head, can also be further evaluated on subsequent MRI. 4. Abnormally thickened endometrium for a patient of postmenopausal age. Differentials include endometrial hyperplasia versus neoplasm, recommend further evaluation with pelvic ultrasound. 5. Small bilateral pleural effusions, right greater than left. Previously described right lower lobe pulmonary nodule is not included within field of view. Please note that all CT scans at this facility use dose modulation, iterative reconstruction, and/or weight-based dosing when appropriate to reduce radiation dose to as low as reasonably achievable. Dictated by Shahbaz Draek MD @ 07/05/2022 12:42:51 PM (Electronically Signed)
--- NOTE | 2022-07-05 10:57 | PM.IMPN1 ---
Progress Note: A&P Assessment and plan (1) Hypoxia: Problem details: - acute hypoxia secondary to COVID infection - treating with remdesivir (3 day course) and Decadron (x2 days) - RT following, tapering supplemental oxygen as tolerated Status: Acute (2) Elevated troponin: Problem details: - likely cardiac strain due to acute illness - peaked at 0.06 - TTE obtained 07/03, results below. Reviewed findings with Cardiology by phone: ddx includes mild COVID myocarditis, demand ischemia. No need to transfer at this time, consider higher level of care if condition changes; otherwise outpatient Cardiology f/u Final Impressions: Limited Echocardiogram performed 1. Normal left ventricular size, normal wall thickness, normal global systolic function, calculated EF of 63 %. 2. Basal anterior septum segment, mid septum segment, basal septum segment are abnormal. Wall motion abnormalities are not in a typical coronary distribution. 3. No significant valve disease detected. 4. Right ventricular cavity size is normal, global systolic RV function is normal. 5. No prior studies for comparison. Status: Acute (3) COVID: Problem details: - PT and OT following to assist with discharge recommendations Status: Acute (4) Acute hypokalemia: Problem details: - replace and follow Status: Acute (5) Hypomagnesemia: Problem details: - replace and follow Status: Acute (6) Non-insulin dependent diabetes mellitus: Problem details: - unknown last A1C, accuchecks and SSI Status: Acute (7) Normocytic anemia: Problem details: - unknown baseline, no evidence of acute bleeding, follow Hgb - elevated reticulocytes, LDH mildly high, Haptoglobin pending - patient unsure of last colonoscopy, will guaiac stools and follow Status: Acute (8) Essential hypertension: Problem details: - home medications with holding parameters Status: Acute (9) Pulmonary mass: Problem details: - 1.7cm mass superior aspect of R lower lobe, incidentally noted on CT scan 07/02 - patient and family aware of finding, will schedule f/u with [facility] as an outpatient Status: Acute (10) Abdominal pain: Problem details: - and bloating - will obtain CT 07/05 Status: Acute (11) MARTHA (acute kidney injury): Problem details: - creatinine 1.0 on admission, up to 1.5 on 07/04 - renally dose medications, follow Status: Acute Plan - per above - ASA, Prasugrel, SCDs for ppx - daughter in law Priscilla updated by phone, questions answered Subjective Date Seen: 07/05/22 Interval history: No acute events overnight. Yaneth has been fairly stable on RA since yesterday afternoon, still feeling weak. She is also complaining of persistent abdominal pain and nausea. Tolerating po intake. No CP, no other concerns for hospitalist team. Exam Narrative: Exam Narrative: GEN: Alert and oriented, appears tired and ill but nontoxic, laying in bed HEENT: EOMIs bilaterally, no scleral icterus CV: RRR, No concerning murmurs, rubs, or gallops R: LCTA bilaterally without concerning wheezing, rales, or rhonchi Abdomen: Soft, mild discomfort diffusely during palpation Skin: No concerning skin lesions or rashes on exposed skin Neuro: Nonfocal Psych: Appropriate Const: Vital Signs, click to edit/add: Vital Signs - 24 hr 07/04/22 12:00 07/04/22 15:00 07/04/22 15:00 Temperature 98.0 F Pulse Rate 60 Pulse Rate [Left P ulse Oximeter] 61 60 Respiratory Rate 20 20 Blood Pressure [Le ft Arm] 127/64 Pulse Oximetry 93 Oxygen Delivery Me thod Room Air 07/04/22 15:00 07/04/22 15:00 07/04/22 15:00 Temperature 96.8 F L Pulse Rate Pulse Rate [Left P ulse Oximeter] 60 Respiratory Rate 20 20 Blood Pressure [Le ft Arm] 122/56 L Pulse Oximetry 95 95 95 Oxygen Delivery Il thod Room Air Room Air 07/04/22 21:00 07/04/22 23:34 07/04/22 23:34 Temperature 97.7 F Pulse Rate 60 Pulse Rate [Left P ulse Oximeter] 62 Respiratory Rate 18 Blood Pressure [Le ft Arm] 140/55 H Pulse Oximetry 94 92 Oxygen Delivery Il thod Room Air 07/04/22 23:34 07/05/22 01:00 07/05/22 05:00 Temperature 97.8 F Pulse Rate Pulse Rate [Left P ulse Oximeter] 60 60 Respiratory Rate 18 18 18 Blood Pressure [Le ft Arm] 140/59 H Pulse Oximetry 92 91 91 Oxygen Delivery Me thod Room Air Room Air Room Air 07/05/22 07:00 07/05/22 07:00 07/05/22 07:51 Temperature 98.3 F Pulse Rate Pulse Rate [Left P ulse Oximeter] 66 Respiratory Rate 20 20 Blood Pressure [Le ft Arm] 152/69 H Pulse Oximetry 94 94 96 Oxygen Delivery Me thod Room Air Room Air 07/05/22 09:45 Temperature Pulse Rate 63 Pulse Rate [Left P ulse Oximeter] Respiratory Rate Blood Pressure [Le ft Arm] Pulse Oximetry Oxygen Delivery Me thod Labs Labs: Laboratory Results - last 24 hr 07/04/22 07/05/22 06:40 06:55 WBC 14.53 H RBC 2.67 L Hgb 8.5 L Hct 25.7 L MCV 96 MCH 32 MCHC 33 RDW Coeff of Radha 14.2 Plt Count 205 Neut % (Auto) 87.6 H Lymph % (Auto) 7.9 L [place] % (Auto) 4.3 Eos % (Auto) 0.0 Baso % (Auto) 0.0 Neut # (Auto) 12.70 H Lymph # (Auto) 1.10 [place] # (Auto) 0.60 Eos # (Auto) 0.00 Baso # (Auto) 0.00 Sodium 136 Potassium 4.3 Chloride 99 Carbon Dioxide 34 H BUN 63 H Creatinine 1.4 Estimated Creat Clear 24.08 Estimated GFR 37 Glucose 125 H Calcium 8.1 L Ionized Calcium Nicole 1.11 Magnesium 2.0 Lactate Dehydrogenase 274 H Troponin I 0.03
[2022-07-05] MEDS: 0.9 % SODIUM CHLORIDE 500 ML 500 ML IV (13:46)
--- NOTE | 2022-07-05 18:21 | PC.NURSE ---
Pt A&O. SBA to bathroom. complains of SOB with activity. Pt has been on RA with sats in the low to mid 90s even after activity. While sleeping, sats will drop to mid 80s, but pt recovered quickly. RT notified. complains of generalized pain rating it 4/10 but states is tolerable. Declined pain medication. Tolerating meals. Pt didn't need any insulin.
[2022-07-05] MEDS: ACETAMINOPHEN 500 MG TABLET 1000 MG PO (20:24)
[2022-07-05] MEDS: MELATONIN 3 MG TABLET PO (21:38)
[2022-07-05] MEDS: ATORVASTATIN CALCIUM 40 MG TABLET PO (21:38)
[2022-07-06 02:01] VITALS: BP 168/66; PULSE 65; RESP 20; TEMP 36.8; O2SAT 92
--- NOTE | 2022-07-06 05:49 | PC.NURSE ---
[id number]: Patient cooperative with cares. Denies pain. SBA. SOB w/activity. C/o starving for air, O2 sat 90%, 2Lt NC applied for 2 hours. Verbalized improvement. Aside from those 2 hours on NC, patient on RA remainder of shift. Tylenol administered for mild fever of 99.7. Denies CP. C/o nausea. MD updated and Zofran ordered. Nausea passed and Zofran not administered.
[2022-07-06] MEDS: OMEPRAZOLE 20 MG CAPSULE DR PO (06:23)
[2022-07-06] MEDS: ACETAMINOPHEN 500 MG TABLET 1000 MG PO ×2 (06:34→14:10)
[2022-07-06 07:00] VITALS: BP 153/67; PULSE 60; PULSE 61; RESP 18; TEMP 36.9; O2SAT 92
[2022-07-06 07:43] LABS: Basophils Absolute Auto 0.01 K/uL (0.00-0.30); Basophils Percent Auto 0.1 % (0.0-3.0); Eosinophils Absolute Auto 0.13 K/uL (0.00-0.50); Eosinophils Percent Auto 1.7 % (0.0-7.0); Hematocrit 26.7 % (33.0-51.0); Hemoglobin* 8.9 gm/dL (12.0-16.0); Immature Granulocytes Abs Auto 0.02 K/uL (0.00-0.30); Immature Granulocytes Pct Auto 0.3 %; Lymphocytes Percent Auto 15.4 % (20-44); Mean Corpuscular HGB Conc 33 gm/dL (32-36); Mean Corpuscular Hemoglobin 32 pg (26-34); Mean Corpuscular Volume 96 fL (80-100); Monocytes Percent Auto 9.3 % (0.0-11.0); Neutrophils Percent Auto 73.2 % (42.0-72.0); Platelet Count* 202 K/uL (140-440); RDW Coefficient of Variation % 14.3 % (11.5-15.5); Red Blood Count 2.78 m/uL (4.00-5.20); White Blood Count* 7.51 K/uL (4.50-11.00)
[2022-07-06 07:45] LABS: Slide Review Reflex No
[2022-07-06 08:00] LABS: Albumin* 2.9 g/dL (3.3-5.0); Chloride* 103 mmol/L (96-114)
[2022-07-06 08:01] LABS: Sodium* 137 mmol/L (135-149)
[2022-07-06 08:03] LABS: Alanine Aminotransferase* 22 U/L (4-35); Alkaline Phosphatase* 70 U/L (40-150); Aspartate Amino Transferase* 21 U/L (12-35); Bilirubin Total* 0.5 mg/dL (0.1-1.5); Blood Urea Nitrogen* 44 mg/dL (7-30); Carbon Dioxide* 30 mmol/L (20-32); Creatinine* 1.2 mg/dL (0.5-1.5); Est. Creatinine Clearance* 28.09; Estimated Glomerular Filt Rate 45 ml/min; Glucose* 112 mg/dL (60-115); Lipase* 144 U/L (23-300); Total Protein* 5.6 g/dL (6.0-8.3)
[2022-07-06 08:04] LABS: Calcium* 8.1 mg/dL (8.4-10.6); Magnesium* 1.8 mg/dL (1.5-2.6); Phosphorus* 3.4 mg/dL (2.5-4.5)
[2022-07-06] MEDS: ASPIRIN 81 MG TAB.CHEW PO (08:48)
[2022-07-06] MEDS: SODIUM CHLORIDE 0.9 % (FLUSH) 10 ML SYRINGE 5 ML IVF (08:49)
[2022-07-06] MEDS: FUROSEMIDE 20 MG TABLET PO (08:49)
[2022-07-06] MEDS: CITALOPRAM HYDROBROMIDE 20 MG TABLET PO (08:49)
[2022-07-06] MEDS: METOPROLOL TARTRATE 25 MG TABLET 50 MG PO (08:49)
[2022-07-06] MEDS: Fluticasone Furoate-Vilanterol [Breo Ellipta] 200-25 mcg/dose IH (08:50)
--- NOTE | 2022-07-06 11:59 | PM.DS1 ---
DS: Providers Provider Date Seen: 07/06/22 Date of admission: 07/03/22 09:17 Primary care physician: Not a Local Provider Admitting Clinician: Brett Brenner MD Consults: PT, OT, RT Attending Physician on discharge: Leona Membreno MD Date of Discharge: 07/06/22 DS: Diagnosis Discharge Diagnosis (1) Hypoxia: Status: Acute Problem details: - acute hypoxia secondary to COVID infection - treating with remdesivir (3 day course) and Decadron (x2 days) - RT following, tapered off of supplemental oxygen and stable on RA prior to discharge (2) Elevated troponin: Status: Acute Problem details: - likely cardiac strain due to acute illness - peaked at 0.06 - TTE obtained 07/03, results below. Reviewed findings with Cardiology by phone: ddx includes mild COVID myocarditis, demand ischemia. Outpatient Cardiology f/u Final Impressions: Limited Echocardiogram performed 1. Normal left ventricular size, normal wall thickness, normal global systolic function, calculated EF of 63 %. 2. Basal anterior septum segment, mid septum segment, basal septum segment are abnormal. Wall motion abnormalities are not in a typical coronary distribution. 3. No significant valve disease detected. 4. Right ventricular cavity size is normal, global systolic RV function is normal. 5. No prior studies for comparison. (3) COVID: Status: Acute Problem details: - PT and OT followed during stay; no additional needs identified upon discharge (4) Acute hypokalemia: Status: Acute Problem details: - replaced, normalized 07/04 (5) Hypomagnesemia: Status: Acute Problem details: - replaced, normalized 07/04 (6) Non-insulin dependent diabetes mellitus: Status: Acute Problem details: - reassuring BGs during stay (7) Normocytic anemia: Status: Acute Problem details: - unknown baseline, no evidence of acute bleeding, negative Hemoccult - elevated reticulocytes, LDH mildly high, Haptoglobin pending upon discharge - patient unsure of last colonoscopy, recommend outpatient f/u of anemia (d/c Hgb of 8.9) (8) Essential hypertension: Status: Acute Problem details: - held HCTZ during stay and upon discharge given intermittent hypotension, otherwise continued home medications (9) Pulmonary mass: Status: Acute Problem details: - 1.7cm mass superior aspect of R lower lobe, incidentally noted on CT scan 07/02 - patient and family aware of finding, will schedule f/u with [facility] as an outpatient (10) Abdominal pain: Status: Acute Problem details: - and bloating; CT obtained 07/05. No acute findings, incidental hepatic lesions and pancreatic lesion; outpatient MRI recommended (11) MARTHA (acute kidney injury): Status: Acute Problem details: - creatinine 1.0 on admission, up to 1.5 on 07/04, 1.2 on discharge - recommend outpatient f/u DS: Summary Hospital Course Hospital Course: 82-year-old female, admitted to the hospital for weakness and hypoxia in the setting of COVID infection. Yaneth was treated with a 3 day course of remdesivir in 2 days of Decadron; she was able to wean off of supplemental oxygen well. She was seen by our therapy teams, who did not recommend any additional services upon discharge. Notable findings during stay are listed above. Recommendations for PCP upon discharge: - consider outpatient pulmonology consult for workup of pulmonary nodule - followup Cardiology recommendations (pt has appt upon discharge) - recheck CBC and BMP in 7-10 days (consider further anemia workup) - outpatient MRI for hepatic/pancreatic lesions Status at Discharge Overall status at discharge: patient is progressing back to baseline Time Spent with Patient Time attestation: Total time spent providing and/or coordinating discharge services: Time spent: Greater than 30 minutes Exam Narrative: Exam Narrative: GEN: Alert and oriented, sitting comfortably in bedside chair HEENT: EOMIs bilaterally, no scleral icterus CV: RRR, No concerning murmurs, rubs, or gallops R: LCTA bilaterally without concerning wheezing, air movement is adequate Abdomen: Soft and nontender Ext: wwp, no concerning edema Skin: No concerning skin lesions or rashes on exposed skin Neuro: Nonfocal Psych: Appropriate Const: Vital Signs, click to edit/add: Vital Signs - 24 hr 07/05/22 12:10 07/05/22 15:00 07/05/22 15:00 Temperature 97.8 F Pulse Rate Pulse Rate [Left P ulse Oximeter] 63 Respiratory Rate 16 16 Blood Pressure [Le ft Arm] 146/73 H Pulse Oximetry 92 92 92 Oxygen Delivery Me thod Room Air Room Air Oxygen Flow Rate 07/05/22 15:00 07/05/22 15:00 07/05/22 16:25 Temperature 97.6 F Pulse Rate 63 Pulse Rate [Left P ulse Oximeter] 64 Respiratory Rate 16 16 Blood Pressure [Le ft Arm] 142/61 H Pulse Oximetry 95 Oxygen Delivery Me thod Room Air Oxygen Flow Rate 07/05/22 20:04 07/05/22 20:24 07/05/22 21:39 Temperature 99.6 F 99.6 F 98.6 F Pulse Rate Pulse Rate [Left P ulse Oximeter] 61 Respiratory Rate 14 Blood Pressure [Le ft Arm] 178/60 H Pulse Oximetry 95 Oxygen Delivery Me od Room Air Oxygen Flow Rate 07/05/22 21:42 07/05/22 23:00 07/05/22 23:00 Temperature 98.6 F Pulse Rate Pulse Rate [Left P ulse Oximeter] 60 Respiratory Rate 16 16 Blood Pressure [Le ft Arm] 142/58 H Pulse Oximetry 95 95 95 Oxygen Delivery Me od Nasal Cannula Nasal Cannula Oxygen Flow Rate 2.0 2.0 07/05/22 23:00 07/06/22 02:01 07/06/22 07:00 Temperature 98.3 F Pulse Rate 60 Pulse Rate [Left P ulse Oximeter] 65 Respiratory Rate 20 Blood Pressure [Le ft Arm] 168/66 H Pulse Oximetry 92 92 Oxygen Delivery Me od Room Air Oxygen Flow Rate 07/06/22 07:00 07/06/22 07:00 07/06/22 07:00 Temperature 98.4 F Pulse Rate Pulse Rate [Left P ulse Oximeter] 60 60 Respiratory Rate 18 18 Blood Pressure [Le ft Arm] 153/67 H Pulse Oximetry 92 92 [facility] Room Air Oxygen Flow Rate 07/06/22 07:00 Temperature Pulse Rate 61 Pulse Rate [Left P ulse Oximeter] Respiratory Rate Blood Pressure [Le ft Arm] Pulse Oximetry Oxygen Delivery Me thod Oxygen Flow Rate DS: Data Data Completed and Pending Labs on day of discharge: Labs from last 24 hours 07/06/22 07:36 WBC 7.51 RBC 2.78 L Hgb 8.9 L Hct 26.7 L MCV 96 MCH 32 MCHC 33 RDW Coeff of Radha 14.3 Plt Count 202 Neut % (Auto) 73.2 H Lymph % (Auto) 15.4 L [place] % (Auto) 9.3 Eos % (Auto) 1.7 Baso % (Auto) 0.1 Neut # (Auto) 5.50 Lymph # (Auto) 1.20 [place] # (Auto) 0.70 Eos # (Auto) 0.13 Baso # (Auto) 0.01 Sodium 137 Potassium 4.0 Chloride 103 Carbon Dioxide 30 BUN 44 H Creatinine 1.2 Estimated Creat Clear 28.09 Estimated GFR 45 Glucose 112 Calcium 8.1 L Phosphorus 3.4 Magnesium 1.8 Total Bilirubin 0.5 AST 21 ALT 22 Alkaline Phosphatase 70 Total Protein 5.6 L Albumin 2.9 L Lipase 144 Discharge Plan Discharge Disposition: Home, Self-Care Date of Admission: 07/03/22 09:17 Attending Provider on Discharge: Leona Membreno Primary Care Provider: Provider,Not a Local Condition: Improved Anticipated Discharge Date/Time: 07/06/22 11:52 Discharge Medications: Continued ipratropium bromide 0.02 % solution 2.5 ml inhalation TID-QID PRN aspirin 81 mg tablet,chewable 81 mg PO DAILY atorvastatin 40 mg tablet 40 mg PO DAILY cetirizine 10 mg tablet 10 mg PO DAILY PRN citalopram 40 mg tablet 40 mg PO DAILY fluticasone propionate 50 mcg/actuation spray,suspension 1 spray intranasal DAILY PRN Rx Instructions: administer into each nostril furosemide 20 mg tablet 20 mg PO DAILY lisinopril 40 mg tablet 40 mg PO DAILY metoprolol tartrate 25 mg tablet 50 mg PO BID omeprazole 20 mg capsule,delayed release(DR/EC) 20 mg PO DAILY prasugrel 10 mg tablet 10 mg PO DAILY fluticasone furoate-vilanterol [Breo Ellipta] 200-25 mcg/dose blister with device 1 inh inhalation DAILY Held hydrochlorothiazide 25 mg tablet 25 mg PO DAILY Hold Instructions: Resume on 07/13/22. Hold for one week (low potassium during hospital stay, good blood pressure control). If your blood pressure is high during your follow up appt with Helen, you can restart this. metformin 500 mg tablet extended release 24 hr 500 mg PO DAILY Hold Instructions: Resume on 07/13/22. May restart in 1 week (when nausea from COVID subsides) Discharge Orders: Discharge Order (Routine); Ordered 07/06/22 Ordered By: Leona Membreno Patient Education: COVID-19 (Coronavirus Disease 2019) (DC) Additional Instructions: HOLD your HCTZ (due to lower potassium and good blood pressure control) and METFORMIN (until your nausea has fully resolved). Recheck blood pressure, hemoglobin, and electrolytes at your f/u appt with Helen. Continue using the Aerobika regularly at home. She can discuss with you other followup appointments. Activity Level: Activity as Tolerated and No strenuous activity Discharge Diet: Regular Follow Up Appointments: Provider,Not a Local [Primary Care Provider] - 07/19/22 8:00 am ( This is to go over recent COVID hospitalization, incidental findings of lung nodule, hepatic/pancreatic nodules, anemia. Patient will also need a CBC/BMP at appt.) Forms: EBIQUOUS Info Instructions
[2022-07-06 12:29] VITALS: BP 144/90; PULSE 61; RESP 18; TEMP 36.9
[2022-07-06 17:46] LABS: Haptoglobin 280 mg/dL (30-200)
== END 2022-07-06 14:10 | disposition home or self-care (01) | DRG 177 ==
LOC: ED 07-03 01:13 → MEDSURG 07-03 05:38
PROVIDERS: Family Medicine; Student in an Organized Health Care Education/Training Program; Admitting Provider Family Medicine; Emergency Provider Family Medicine; Visit Provider Family Medicine
DX: U07.1 COVID-19 (principal); J96.01 Acute respiratory failure with hypoxia; N17.9 Acute kidney failure, unspecified; E87.6 Hypokalemia; E83.42 Hypomagnesemia; E83.51 Hypocalcemia; R91.1 Solitary pulmonary nodule; R77.8 Other specified abnormalities of plasma proteins; I11.0 Hypertensive heart disease with heart failure; I50.9 Heart failure, unspecified; E11.9 Type 2 diabetes mellitus without complications; D64.9 Anemia, unspecified; I25.10 Atherosclerotic heart disease of native coronary artery without angina pectoris; E78.5 Hyperlipidemia, unspecified; Z95.810 Presence of automatic (implantable) cardiac defibrillator; Z87.891 Personal history of nicotine dependence
CPT/HCPCS: 36415; 71045; 71260; 74177; 80048; 80053; 81001; 82330; 82728; 82962; 83010; 83540; 83550; 83605; 83615; 83690; 83735; 84100; 84484; 85025; 85045; 85379; 86140; 87631; 93005; 93308; 93321; 93325; 94664; 94761; 97110; 97116; 97162; 97165; 97530; 97535; 99285; A9270; G0378; J1100; J1650; J2405; J3475; J7050; J7120; Q9967